=== PATIENT | female | born 1930 | race Caucasian/White ===

== ENCOUNTER 2016-03-02 06:57 | Inpatient (IN) | payer OTHER ==
[2016-03-02] VITALS (14 sets, daily range): BP systolic 135–192; BP diastolic 54–103
[~2016-03-02] VITALS: Ht 165.1 cm; Wt 55.0 kg
[~2016-03-02 06:57] MED LIST: AZIT500T PO; CARV6.252 PO; ISOS20TA6 PO
[2016-03-02] MEDS ORDERED: CLOPIDOGREL BISULFATE 75 MG TABLET ONE (07:06)
[2016-03-02] MEDS ORDERED: FUROSEMIDE 40 MG/4 ML VIAL ONE (07:07)
[2016-03-02] MEDS ORDERED: ENALAPRILAT DIHYD. (2.5MG/ML) 1.25 MG/ML VIAL IV ONE ×2 (07:07→07:30)
[2016-03-02] MEDS ORDERED: NITROGLYCERIN PACKET 1 GM PACKET ONE (07:07)
[2016-03-02] MEDS ORDERED: NITROGLYCERIN PACKET 1 GM PACKET TD ONE (07:30)
[2016-03-02] MEDS ORDERED: CLOPIDOGREL BISULFATE 75 MG TABLET PO ONE (07:30)
[2016-03-02] MEDS ORDERED: FUROSEMIDE 40 MG/4 ML VIAL IV ONE (07:30)
[2016-03-02 07:45] LABS: BASOPHILS # (AUTO) 0.1 /CMM (0.0-0.2); BASOPHILS % (AUTO) 0.8 % (0.0-2.0); DIFF TOTAL % 100 %; EOSINOPHILS # (AUTO) 0.2 /CMM (0.0-0.7); EOSINOPHILS % (AUTO) 1.3 % (0.0-6.0); HEMATOCRIT 32 % (33-45); HEMOGLOBIN 10.5 g/dL (11.5-14.8); LYMPHOCYTES % (AUTO) 59.5 % (20.0-44.0); MEAN CORPUSCULAR HEMOGLOBIN 26 PG (26.0-33.0); MEAN CORPUSCULAR HGB CONC 32 g/dl (31.0-36.0); MEAN CORPUSCULAR VOLUME 82 fL (82-100); MONOCYTES # (AUTO) 0.7 /CMM (0.1-1.30); MONOCYTES % (AUTO) 6.2 % (2.0-12.0); NEUTROPHILS # (AUTO) 3.8 /CMM (1.8-8.9); NEUTROPHILS % (AUTO) 32.2 % (43.0-81.0); PLATELET COUNT (AUTO) 251 /CMM (150-450); RED BLOOD CELL COUNT(AUTO) 3.98 MIL/uL (4.0-5.2); WHITE BLOOD COUNT (AUTO) 11.8 K/uL (4.3-11.0)
[2016-03-02 07:55] LABS: CALCIUM, SERUM 8.7 mg/dL (8.5-10.1); CREATININE 1.6 mg/dL (0.6-1.3); POTASSIUM 3.7 mmol/L (3.5-5.1)
[2016-03-02 08:01] LABS: TROPONIN I 0.021 ng/mL (0.00-0.056)
[2016-03-02 08:05] LABS: PROTHROMBIN TIME 10.8 SECS (9.5-12.7)
[2016-03-02 08:08] LABS: ALBUMIN 3.7 g/dL (3.4-5.0); BILIRUBIN,DIRECT 0.2 mg/dL (0.0-0.2); BILIRUBIN,TOTAL 0.6 mg/dL (0.2-1.0); INDIRECT BILIRUBIN 0.4 mg/dL (0.0-1.1); TOTAL PROTEIN, SERUM 7.5 g/dL (6.4-8.2)
[2016-03-02] MEDS ORDERED: CARV6.252 PO (08:42)
[2016-03-02] MEDS ORDERED: FURO20TA4 PO (08:42)
[2016-03-02] MEDS ORDERED: ISOS20TA8 PO (08:42)
[2016-03-02] MEDS ORDERED: ONDANSETRON HCL/PF 4 MG/2 ML VIAL IVP PRN (13:30)
[2016-03-02] MEDS ORDERED: ENOXAPARIN SODIUM 40 MG/0.4 ML DISP.SYRIN SQ SCH (13:30)
[2016-03-02] MEDS ORDERED: ACETAMINOPHEN 325 MG TABLET PO PRN (13:30)
[2016-03-02] MEDS ORDERED: IV SET PRIMARY PUMP SET 1 EA INFUS.SET MC ONE (13:45)
[2016-03-02] MEDS: ENOXAPARIN SODIUM 30 MG/0.3 ML DISP.SYRIN SQ SCH (13:54)
[2016-03-02] MEDS ORDERED: BUMETANIDE INJ 4 MG in IV NS 0.9% 24 ML IV ONE (14:00)
[2016-03-02] MEDS: CARVEDILOL 6.25 MG TABLET PO SCH (21:20)
[2016-03-03] VITALS: BP 135/75
[2016-03-03 04:00] VITALS: BP 140/68
[2016-03-03 07:31] LABS: BASOPHILS # (AUTO) 0.1 /CMM (0.0-0.2); BASOPHILS % (AUTO) 0.8 % (0.0-2.0); DIFF TOTAL % 100 %; EOSINOPHILS # (AUTO) 0.2 /CMM (0.0-0.7); EOSINOPHILS % (AUTO) 2.1 % (0.0-6.0); HEMATOCRIT 30 % (33-45); HEMOGLOBIN 9.8 g/dL (11.5-14.8); LYMPHOCYTES # (AUTO) 5.3 /CMM (0.8-4.8); LYMPHOCYTES % (AUTO) 61.4 % (20.0-44.0); MEAN CORPUSCULAR HEMOGLOBIN 26 PG (26.0-33.0); MEAN CORPUSCULAR HGB CONC 32 g/dl (31.0-36.0); MEAN CORPUSCULAR VOLUME 81 fL (82-100); MONOCYTES # (AUTO) 0.7 /CMM (0.1-1.30); NEUTROPHILS # (AUTO) 2.4 /CMM (1.8-8.9); NEUTROPHILS % (AUTO) 27.7 % (43.0-81.0); PLATELET COUNT (AUTO) 230 /CMM (150-450); RED BLOOD CELL COUNT(AUTO) 3.76 MIL/uL (4.0-5.2); WHITE BLOOD COUNT (AUTO) 8.7 K/uL (4.3-11.0)
[2016-03-03 07:50] LABS: ALBUMIN 3.1 g/dL (3.4-5.0); BILIRUBIN,TOTAL 0.5 mg/dL (0.2-1.0); CALCIUM, SERUM 8.1 mg/dL (8.5-10.1); CREATININE 1.6 mg/dL (0.6-1.3); PHOSPHORUS 4.1 mg/dL (2.5-4.9); POTASSIUM 3.3 mmol/L (3.5-5.1); TOTAL PROTEIN, SERUM 6.5 g/dL (6.4-8.2)
[2016-03-03 07:52] LABS: THYROID STIMULATING HORMONE 3.138 uIU/mL (0.358-3.74)
[2016-03-03] MEDS: ENOXAPARIN SODIUM 30 MG/0.3 ML DISP.SYRIN SQ SCH (09:43)
[2016-03-03] MEDS: CARVEDILOL 6.25 MG TABLET PO SCH ×2 (09:54→21:06)
[2016-03-03] MEDS: FUROSEMIDE 20 MG TABLET PO SCH (09:54)
[2016-03-03] MEDS: ISOSORBIDE DINITRATE (20MG) 20 MG TABLET PO SCH (09:55)
[2016-03-03] MEDS ORDERED: POTASSIUM CHLORIDE 10 MEQ TABLET.SA PO ONE ×2 (13:00→18:30)
[2016-03-03] MEDS ORDERED: LACTULOSE 10 G/15 ML UDC (PYXIS) PO PRN (13:30)
[2016-03-03] MEDS ORDERED: BISACODYL SUPP (10 MG) 10 MG/SUPP.RECT SUPP.RECT RC PRN (13:30)
[2016-03-03] MEDS ORDERED: VALSARTAN 40 MG TABLET PO SCH (13:30)
[2016-03-03] MEDS: AMLODIPINE BESYLATE 10 MG TABLET PO SCH (18:30)
[2016-03-03 20:00] VITALS: BP 126/63
[2016-03-03] MEDS: VALSARTAN 80 MG TABLET PO SCH (21:07)
[2016-03-04] VITALS: BP 123/65
[2016-03-04] MEDS ORDERED: oxyCODONE/APAP (5/325 MG) 1 UDTAB TABLET ONE (00:57)
[2016-03-04] MEDS: oxyCODONE/APAP (5/325 MG) 1 UDTAB TABLET PO PRN ×2 (01:04→14:42)
[2016-03-04 04:00] VITALS: BP 110/57
[2016-03-04 07:12] VITALS: BP 100/62
[2016-03-04] MEDS: VALSARTAN 80 MG TABLET PO SCH (09:00)
[2016-03-04] MEDS: ISOSORBIDE DINITRATE (20MG) 20 MG TABLET PO SCH (09:00)
[2016-03-04] MEDS: FUROSEMIDE 20 MG TABLET PO SCH (09:00)
[2016-03-04] MEDS: AMLODIPINE BESYLATE 10 MG TABLET PO SCH (09:00)
[2016-03-04 09:28] LABS: BASOPHILS # (AUTO) 0.1 /CMM (0.0-0.2); BASOPHILS % (AUTO) 0.6 % (0.0-2.0); DIFF TOTAL % 100 %; EOSINOPHILS # (AUTO) 0.1 /CMM (0.0-0.7); EOSINOPHILS % (AUTO) 1.5 % (0.0-6.0); HEMATOCRIT 29 % (33-45); HEMOGLOBIN 9.3 g/dL (11.5-14.8); LYMPHOCYTES # (AUTO) 5.8 /CMM (0.8-4.8); LYMPHOCYTES % (AUTO) 58.9 % (20.0-44.0); MEAN CORPUSCULAR HEMOGLOBIN 26 PG (26.0-33.0); MEAN CORPUSCULAR HGB CONC 32 g/dl (31.0-36.0); MEAN CORPUSCULAR VOLUME 81 fL (82-100); MONOCYTES # (AUTO) 0.9 /CMM (0.1-1.30); MONOCYTES % (AUTO) 8.7 % (2.0-12.0); NEUTROPHILS % (AUTO) 30.3 % (43.0-81.0); PLATELET COUNT (AUTO) 231 /CMM (150-450); RED BLOOD CELL COUNT(AUTO) 3.58 MIL/uL (4.0-5.2); WHITE BLOOD COUNT (AUTO) 9.8 K/uL (4.3-11.0)
[2016-03-04 09:50] LABS: CALCIUM, SERUM 8.2 mg/dL (8.5-10.1); CREATININE 2.5 mg/dL (0.6-1.3); PHOSPHORUS 4.4 mg/dL (2.5-4.9); POTASSIUM 3.8 mmol/L (3.5-5.1)
[2016-03-04] MEDS: CARVEDILOL 6.25 MG TABLET PO SCH (11:00)
[2016-03-04] MEDS: ENOXAPARIN SODIUM 30 MG/0.3 ML DISP.SYRIN SQ SCH (11:02)
[2016-03-04 11:48] LABS: IRON, SERUM 22 ug/dl (50-175); PERCENT SATURATION 7 % (14-33); TOTAL IRON BINDING CAPACITY 310 ug/dl (250-450)
[2016-03-04] MEDS ORDERED: AMLO5TAB4 PO (13:43)
[2016-03-04] MEDS ORDERED: FERR325T28 PO (13:43)
[2016-03-04] MEDS ORDERED: DOXA1TAB17 PO (13:43)
[2016-03-04] MEDS ORDERED: VALS40TA4 PO (13:43)
[2016-03-04] MEDS ORDERED: RIVA10TA PO (13:44)
[2016-03-04 16:00] VITALS: BP 142/67
== END 2016-03-04 17:00 | disposition home or self-care (01) | DRG 280 ==
LOC: ER 06:58 → ICU 09:14 → TELE 17:52 → MED 03-04 11:47
PROVIDERS: ADMIT Nurse Practitioner Acute Care; ATTEND Nurse Practitioner Acute Care
DX: I13.0 Hypertensive heart and chronic kidney disease with heart failure and stage 1 through stage 4 chronic kidney disease, or unspecified chronic kidney disease (principal); J96.00 Acute respiratory failure, unspecified whether with hypoxia or hypercapnia; I21.4 Non-ST elevation (NSTEMI) myocardial infarction; I50.31 Acute diastolic (congestive) heart failure; N18.4 Chronic kidney disease, stage 4 (severe); N17.9 Acute kidney failure, unspecified; D68.59 Other primary thrombophilia; M48.54XA Collapsed vertebra, not elsewhere classified, thoracic region, initial encounter for fracture; I48.2 Chronic atrial fibrillation
CPT/HCPCS: 36415; 71010-TC; 72131-TC; 80048-TC; 80053-TC; 80061-TC; 80076-TC; 83540-TC; 83735-TC; 83880; 84100-TC; 84443-TC; 84484-TC; 85025-TC; 85730-TC; 87081-TC; A4606; J1650; J1940; J3490; J7030; Z7610